=== PATIENT | male | born 1990 | race Two or more races ===

== ENCOUNTER 2024-12-13 18:19 | Emergency (ER) | payer OTHER ==
[~2024-12-13] VITALS: Ht 175.3 cm; Wt 97.1 kg
[2024-12-13 18:27] VITALS: BP 130/87; O2SAT 98
[2024-12-13] MEDS ORDERED: KETOROLAC TROMETHAMINE 30 MG VIAL IM STA (18:55)
[2024-12-13] MEDS ORDERED: DEXAMETHASONE SODIUM PHOSPHATE 4 MG/ML VIAL IM STA (18:56)
[2024-12-13] MEDS ORDERED: KETOROLAC TROMETHAMINE 30 MG VIAL ONE (19:56)
[2024-12-13] MEDS ORDERED: DEXAMETHASONE SODIUM PHOSPHATE 4 MG/ML VIAL ONE (19:56)
[2024-12-13 21:04] LABS: BASO % 0.4 % (0.1-1.2); EOS # 0.25 (0.04-0.54); EOS % 1.8 % (0.7-7.0); LYMPH # 1.72 (1.18-3.74); LYMPH % 12.3 % (19.3-53.1); MEAN PLATELET VOLUME 9.80 fl (9.4-12.4); MONO # 1.00 (0.24-0.82); MONO % 7.1 % (4.7-12.5); NEUT # 10.99 (1.56-6.13); NEUT % 78.2 % (34.0-71.1); RED CELL DISTRIBUTION WIDTH 11.7 % (11.6-14.4)
[2024-12-13 21:33] LABS: URINE APPEARANCE Clear; URINE BILIRRUBIN Negative (NEGATIVE); URINE BLOOD Negative; URINE COLOR Yellow; URINE GLUCOSE Negative (NEGATIVE); URINE KETONE Negative (NEGATIVE); URINE LEUKOCYTE Trace; URINE NITRATE Negative; URINE PROTEIN Negative (NEGATIVE); URINE UROBILINOGEN 0.2 E.U./dl
[2024-12-13 21:35] LABS: BUN CREA RATIO 10.0 (7.0-25.0); CREATININE SERUM 1.06 mg/dL (0.70-1.30); GFR 80.96; GLUCOSE FASTING 96.0 mg/dL (65-100); OSMOLALITY SERUM 277.0 MOSM/KG (275-295)
[2024-12-13 21:38] LABS: URINE BACTERIA 51.5 uL (0.0-1933); URINE EPITHELIAL CELLS 5.2 uL (0.0-38.8); URINE WBC 46.8 uL (0.0-23.2)
[2024-12-13 21:58] LABS: INR 1.11
[2024-12-13] MEDS ORDERED: CEFTRIAXONE SODIUM 1,000 MG VIAL IM STA (22:10)
[2024-12-13 22:12] LABS: URINE CAST 0.00 uL (0.0-1.40); URINE RBC 1.6 uL (0.0-20.8)
[2024-12-13] MEDS ORDERED: CEFTRIAXONE SODIUM 1,000 MG VIAL ONE (22:22)
== END 2024-12-13 23:21 | disposition home or self-care (01) ==
LOC: ER 18:19
PROVIDERS: General Practice
DX: N50.811 Right testicular pain (principal); N45.1 Epididymitis